=== PATIENT | female | born 1955 | race Caucasian/White ===

== ENCOUNTER 2016-10-25 10:25 | Outpatient (CLI) | payer OTHER | END 2016-10-25 10:26 | disposition home or self-care (01) | DX: K57.32 Diverticulitis of large intestine without perforation or abscess without bleeding (principal) ==

== ENCOUNTER 2017-10-31 08:00 | Outpatient (CLI) | payer OTHER ==
[2017-10-31 14:31] LABS: BASOPHILS # (AUTO) 0.1 10^3/uL (0.0-0.1); BASOPHILS % (AUTO) 0.6 %; EOSINOPHILS # (AUTO) 0.1 10^3/uL (0.0-0.7); EOSINOPHILS % (AUTO) 1.8 %; HGB - HEMOGLOBIN 14.5 g/dL (12.0-16.0); LYMPHOCYTES # (AUTO) 2.1 10^3/uL (1.5-3.5); LYMPHOCYTES % (AUTO) 26.9 %; MEAN CORPUSCULAR HEMOGLOBIN 31.2 pg (27.0-31.0); MEAN CORPUSCULAR HGB CONC 34.7 g/dL (32.0-36.0); MEAN CORPUSCULAR VOLUME 89.9 fL (81.0-99.0); MEAN PLATELET VOLUME 9.4 fL (7.9-10.8); MONOCYTES % (AUTO) 13.3 %; NEUTROPHILS # (AUTO) 4.5 10^3/uL (1.5-6.6); NEUTROPHILS % (AUTO) 57.4 %; RED BLOOD COUNT 4.65 10^6/uL (4.20-5.40); RED CELL DISTRIBUTION WIDTH 12.7 % (12.0-15.0); WHITE BLOOD COUNT 7.8 x10^3/uL (4.8-10.8)
[2017-10-31 14:43] LABS: ALBUMIN 4.5 g/dL (3.2-5.5); ALBUMIN/GLOBULIN RATIO 1.5 (1.0-2.2); ALKALINE PHOSPHATASE 76 IU/L (42-121); ALT ALANINE AMINOTRANSFERASE 19 IU/L (10-60); AST ASPARTATE AMINOTRANSFERASE 21 IU/L (10-42); BILIRUBIN,TOTAL 0.5 mg/dL (0.2-1.0); BUN - BLOOD UREA NITROGEN 27 mg/dL (6-20); CARBON DIOXIDE - CO2 28 mmol/L (21-32); CHLORIDE 101 mmol/L (101-111); CHOL/HDL RATIO 2.7 (<4.4); CHOLESTEROL 240 mg/dL; CREATININE 0.8 mg/dL (0.4-1.0); GFR - MDRD 73 (>89); GLUCOSE 91 mg/dL (70-100); HDL CHOLESTEROL 88 mg/dL; LDL CHOLESTEROL,CALCULATED 142 mg/dL; LDL/HDL RATIO 1.6 (<4.4); SODIUM 137 mmol/L (135-145); TOTAL PROTEIN 7.6 g/dL (6.7-8.2); VLDL CHOLESTEROL 10 mg/dL
[2017-10-31 14:46] LABS: PLATELET ESTIMATE, MANUAL NORMAL (130-450,000) (NORMAL); PLATELET MORPHOLOGY PLATELET CLUMPING (NORMAL); RBC MORPHOLOGY (MULTIPLE) NORMAL APPEARANCE (NORMAL)
[2017-11-01 10:21] LABS: HEPATITIS C ANTIBODY NON-REACTIVE (NON-REACTIVE)
== END 2017-10-31 08:01 | disposition home or self-care (01) ==
LOC: LAB.R 08:00
PROVIDERS: ATTEND Physician Assistant Medical
DX: Z00.00 Encounter for general adult medical examination without abnormal findings (principal); Z72.89 Other problems related to lifestyle
CPT/HCPCS: 80053; 80061; 83721; 84443; 85025; 86803

== ENCOUNTER 2017-11-11 08:30 | Outpatient (CLI) | payer OTHER ==
[2017-11-13 19:36] LABS: ANA SCREEN POSITIVE (NEGATIVE)
== END 2017-11-11 08:31 | disposition home or self-care (01) ==
LOC: LAB.R 08:30
PROVIDERS: ATTEND Physician Assistant
DX: L71.8 Other rosacea (principal)
CPT/HCPCS: 86038

== ENCOUNTER 2018-09-15 12:19 | Outpatient (CLI) | payer OTHER ==
--- NOTE | 2018-09-15 13:48 | MRI Report ---
Reason: CERVICAL DISC DISORDER WITH RADICULOPATHY Procedure Date: 09/15/2018 Accession Number: [id number] / [id number] Procedure: MRI - Cervical Spine W/O CPT Code: FULL RESULT: EXAM: MRI CERVICAL SPINE WITHOUT CONTRAST EXAM DATE: 09/15/2018 01:22 PM. CLINICAL HISTORY: Cervical disk disorder with radiculopathy.Reported history of neck pain with pain extending into both arms. COMPARISONS: Cervical spine 12/03/2010 9:55 AM. TECHNIQUE: Multiplanar, multisequence T1-weighted and fluid-sensitive sequences of the cervical spine without contrast. Other: None. FINDINGS: Neurologic Structures: The visualized posterior fossa structures are unremarkable. No signal abnormality in the visualized spinal cord. Alignment: No interval change of alignment. Bone Marrow: No acute marrow edema. Multilevel degenerative endplate signal changes are present, most prominent at C3-C4 and C6-C7. Interspace Levels/Facets: C1-C2: Stable appearance. Patent central canal. C2-C3: Stable appearing mild degenerative disk disease and facet arthropathy. Mild but potentially progressive foraminal stenosis on the left primarily from facet arthropathy. C3-C4: Moderate and progressive degenerative disk disease. Circumferential disk bulge. Mildly more prominent ventral thecal sac indentation by broad-based posterior disk protrusion, mild central stenosis is now present but without cord compression. Broad-based bulge extends laterally into both foramina. More prominent left and right uncinate process spurring and facet arthropathy. Bilateral foraminal stenosis, progressive, moderate on the right and moderate to severe on the left. C4-C5: Moderate progressive degenerative disk disease. Broad-based bulge. Marginal spurring. Additional prominent asymmetric and probably progressive left intraforaminal disk protrusion with osteophyte creating moderate to severe left foraminal stenosis. Minimal central stenosis. No cord impingement. Patent right foramen. C5-C6: Similar pattern of moderate degenerative disk disease with marginal spurring and circumferential disk bulge. Essentially stable midline posterior protrusion which may contact the ventral cord surface but does not appear progressive. Stable degree of mild central canal stenosis. The neural foramina show no significant or progressive stenosis. C6-C7: Similar findings of moderate degenerative disk disease. Circumferential disk bulge and marginal spurring are similar to prior. Minimal nonprogressive central stenosis. No cord impingement. Stable mild appearing bilateral foraminal stenosis. C7-T1: Mild but progressive degenerative disk space narrowing. Moderately prominent and progressive appearing facet arthropathy left greater than right. Patent central canal and right foramen. Minimal left foraminal stenosis is present. T1-T2: Left greater than right facet arthropathy associated with a mild degree of left foraminal stenosis on the left posteriorly which appears stable. Musculature: No acute edema. Other: No focal prevertebral soft tissue thickening. IMPRESSION: 1. Multilevel minimal to mild central stenosis without significant progression or developing cord impingement. 2. Prominent and progressive degenerative foraminal stenosis at multiple levels. This appears especially pronounced at C3-C4 left greater than right and on the left at C4-C5. RADIA
== END 2018-09-15 12:20 | disposition home or self-care (01) ==
LOC: DI 12:19
PROVIDERS: ATTEND Physician Assistant Medical
DX: M50.31 Other cervical disc degeneration, high cervical region (principal); M48.02 Spinal stenosis, cervical region; M50.21 Other cervical disc displacement, high cervical region; M47.9 Spondylosis, unspecified
CPT/HCPCS: 72141

== ENCOUNTER 2019-03-02 10:24 | Outpatient (CLI) | payer OTHER ==
[2019-03-02 11:04] LABS: BASOPHILS # (AUTO) 0.1 10^3/uL (0.0-0.1); BASOPHILS % (AUTO) 1.1 %; EOSINOPHILS # (AUTO) 0.1 10^3/uL (0.0-0.7); EOSINOPHILS % (AUTO) 1.8 %; HGB - HEMOGLOBIN 13.9 g/dL (12.0-16.0); LYMPHOCYTES # (AUTO) 1.8 10^3/uL (1.5-3.5); LYMPHOCYTES % (AUTO) 24.6 %; MEAN CORPUSCULAR HEMOGLOBIN 31.1 pg (27.0-31.0); MEAN CORPUSCULAR HGB CONC 34.2 g/dL (32.0-36.0); MEAN CORPUSCULAR VOLUME 90.8 fL (81.0-99.0); MEAN PLATELET VOLUME 9.9 fL (7.9-10.8); MONOCYTES # (AUTO) 0.9 10^3/uL (0.0-1.0); NEUTROPHILS # (AUTO) 4.3 10^3/uL (1.5-6.6); NEUTROPHILS % (AUTO) 59.9 %; PLT - PLATELET COUNT 259 10^3/uL (130-450); RED BLOOD COUNT 4.47 10^6/uL (4.20-5.40); RED CELL DISTRIBUTION WIDTH 12.2 % (12.0-15.0); WHITE BLOOD COUNT 7.2 x10^3/uL (4.8-10.8)
[2019-03-02 11:15] LABS: ALBUMIN 4.2 g/dL (3.2-5.5); ALBUMIN/GLOBULIN RATIO 1.3 (1.0-2.2); BILIRUBIN,TOTAL 0.6 mg/dL (0.2-1.0); CALCIUM 9.4 mg/dL (8.5-10.3); CREATININE 0.6 mg/dL (0.4-1.0); TOTAL PROTEIN 7.4 g/dL (6.7-8.2)
== END 2019-03-02 10:25 | disposition home or self-care (01) ==
LOC: LAB 10:24
PROVIDERS: ATTEND Nurse Practitioner
DX: R10.9 Unspecified abdominal pain (principal); K58.9 Irritable bowel syndrome, unspecified
CPT/HCPCS: 36415; 80053; 85025

== ENCOUNTER 2019-03-02 14:42 | Outpatient (CLI) | payer OTHER ==
[2019-03-02] MEDS ORDERED: IOVERSOL 320 50 ML VIAL ONE (14:53)
[2019-03-02] MEDS ORDERED: IOVERSOL 320 100 ML VIAL IVP ONE ×2 (14:53→15:56)
[2019-03-02] MEDS ORDERED: IOVERSOL 320 50 ML VIAL PO ONE (15:56)
--- NOTE | 2019-03-02 16:11 | CT Report ---
Reason: IBD,ABDOMINAL PAIN Procedure Date: 03/02/2019 Accession Number: [id number] / [id number] Procedure: CT - Abdomen/Pelvis W CPT Code: FULL RESULT: EXAM: CT ABDOMEN AND PELVIS EXAM DATE: 03/02/2019 03:55 PM. CLINICAL HISTORY: IBD, abdominal pain. COMPARISONS: ABDOMEN/PELVIS W/ 02/06/2015 2:12 PM. TECHNIQUE: Routine helical CT imaging was performed through the abdomen and pelvis. IV contrast: OPTI 320 100 mL. Enteric contrast: Yes. Reconstructions: Coronal and sagittal. In accordance with CT protocol optimization, one or more of the following dose reduction techniques were utilized for this exam: automated exposure control, adjustment of mA and/or KV based on patient size, or use of iterative reconstructive technique. FINDINGS: Lung Bases: Limited by motion artifact, unremarkable. Liver: Normal. No masses. Gallbladder/Bile Ducts: Not seen, prominent common bile duct, normal finding in the setting of prior cholecystectomy. Spleen: Normal. Pancreas: Normal. Adrenal Glands: Normal. Kidneys: Appearance of extrarenal right pelvis is similar to 2015 with no surrounding perinephric fat stranding to suggest underlying hydronephrosis. Left kidney is unremarkable. Peritoneal Cavity/Bowel: There is no bowel obstruction or abscess formation. A few prominent lymph nodes are seen in the pericecal region. There is prominence of the pericolonic fat as well as subtle stranding in the region of the splenic flexure of the colon were a few prominent lymph nodes are seen. There is sigmoid diverticulosis without evidence of diverticulitis. The appendix is not seen. Pelvic Organs: Normal. The bladder and visualized pelvic organs are within normal limits. Vasculature: No aneurysms or other significant abnormality. Bones: No significant abnormality. Other: None. IMPRESSION: Nonspecific inflammatory changes in the region of the colonic splenic flexure with a few additional lymph nodes in the region of the cecum, compatible with reported history of inflammatory bowel disease. No abscess or bowel obstruction to suggest acute complication. RADIA
== END 2019-03-02 14:43 | disposition home or self-care (01) ==
LOC: DI 14:42
PROVIDERS: ATTEND Nurse Practitioner
DX: R10.9 Unspecified abdominal pain (principal); K58.9 Irritable bowel syndrome, unspecified
CPT/HCPCS: 36415; 74177; 80053; 85025; Q9967

== ENCOUNTER 2019-07-09 08:00 | Outpatient (CLI) | payer OTHER | END 2019-07-09 23:59 | disposition home or self-care (01) | LOC: LAB.R 08:00 | PROVIDERS: ATTEND Internal Medicine | DX: R19.7 Diarrhea, unspecified (principal); R10.31 Right lower quadrant pain; R10.32 Left lower quadrant pain | CPT/HCPCS: 81599; 83993 ==

== ENCOUNTER 2019-08-21 04:52 | Emergency (ER) | payer OTHER ==
[2019-08-21 05:29] LABS: BASOPHILS # (AUTO) 0.1 10^3/uL (0.0-0.1); BASOPHILS % (AUTO) 0.8 %; EOSINOPHILS # (AUTO) 0.2 10^3/uL (0.0-0.7); EOSINOPHILS % (AUTO) 1.5 %; HGB - HEMOGLOBIN 14.2 g/dL (12.0-16.0); LYMPHOCYTES # (AUTO) 1.6 10^3/uL (1.5-3.5); LYMPHOCYTES % (AUTO) 15.2 %; MEAN CORPUSCULAR HEMOGLOBIN 31.1 pg (27.0-31.0); MEAN CORPUSCULAR HGB CONC 34.1 g/dL (32.0-36.0); MEAN CORPUSCULAR VOLUME 91.4 fL (81.0-99.0); MONOCYTES # (AUTO) 1.9 10^3/uL (0.0-1.0); MONOCYTES % (AUTO) 17.9 %; NEUTROPHILS # (AUTO) 6.8 10^3/uL (1.5-6.6); NEUTROPHILS % (AUTO) 64.3 %; PLT - PLATELET COUNT 244 10^3/uL (130-450); RED BLOOD COUNT 4.56 10^6/uL (4.20-5.40); RED CELL DISTRIBUTION WIDTH 12.5 % (12.0-15.0); WHITE BLOOD COUNT 10.5 x10^3/uL (4.8-10.8)
[2019-08-21] MEDS ORDERED: ALBUTEROL NEB 2.5 MG/3 ML INH STA (05:33)
[2019-08-21] MEDS ORDERED: CHERRY SYRUP 10 ML UDC PO ONE (05:33)
[2019-08-21] MEDS ORDERED: BENZONATATE 100 MG CAPSULE PO STA (05:33)
[2019-08-21] MEDS ORDERED: DEXAMETHASONE 10 MG/ML VIAL PO STA (05:33)
[2019-08-21 05:38] LABS: ALBUMIN 4.2 g/dL (3.2-5.5); ALBUMIN/GLOBULIN RATIO 1.3 (1.0-2.2); BILIRUBIN,TOTAL 0.5 mg/dL (0.2-1.0); CREATININE 0.6 mg/dL (0.4-1.0); TOTAL PROTEIN 7.5 g/dL (6.7-8.2)
--- NOTE | 2019-08-21 05:45 | XRAY Report ---
Reason: chest tightness/cough Procedure Date: 08/21/2019 Accession Number: [id number] / [id number] Procedure: XR - Chest 2 View X-Ray CPT Code: 80471 Final Report FULL RESULT: EXAM: CHEST RADIOGRAPHY EXAM DATE: 08/21/2019 05:29 AM. CLINICAL HISTORY: Chest tightness/cough. COMPARISON: XR RIBS UNILAT W/ PA CHEST MIN 3 VIEWS 06/18/2010 10:59 AM. TECHNIQUE: 2 views. FINDINGS: Lungs/Pleura: No alveolar consolidation or pleural effusion seen. No pneumothorax. Mediastinum: Heart size upper normal. Other: None. IMPRESSION: 1. Borderline heart size. No acute abnormality seen. RADIA
--- NOTE | 2019-08-21 06:51 | ED Physician Documentation ---
PD HPI URI - Stated complaint Stated Complaint: CP/CONGESTION - Chief complaint Chief Complaint: Cardiac - History obtained from History obtained from: Patient - History of Present Illness Timing - onset: How many weeks ago (1) Timing duration: Weeks (1) Timing details: Gradual onset, Still present Associated symptoms: Nasal congestion, Dry cough, Chest pain (with coughing), Dyspnea. No: Fever, NVD Contributing factors: No: Sick contact, Travel, Unimmunized, COPD / asthma Similar symptoms before: Has not had sx before Recently seen: Not recently seen Review of Systems Constitutional: denies: Fever Nose: reports: Rhinorrhea / runny nose, Congestion Cardiac: reports: Chest pain / pressure (only with coughing). denies: Palpitations, Pedal edema, Calf pain Respiratory: reports: Dyspnea, Cough. denies: Hemoptysis, Wheezing GI: denies: Nausea, Vomiting Skin: denies: Rash, Lesions Musculoskeletal: denies: Neck pain, Back pain, Extremity swelling Neurologic: reports: Generalized weakness. denies: Near syncope PD PAST MEDICAL HISTORY - Past Medical History Past Medical History: Yes Cardiovascular: Other Musculoskeletal: Osteoarthritis, Osteoporosis Other Past Medical History: SVT - Past Surgical History Past Surgical History: Yes /CLINICAL MEDICAL ASSISTANT: Hysterectomy HEENT: Tonsil/Adenoidectomy - Present Medications Home Medications: Ambulatory Orders Medication Instructions Recorded Confirmed Estradiol [Estrace] 0.5 mg PO DAILY 07/23/14 08/21/19 HYDROcod/ACETAM 5/325 [Mcgee 5/325] 1 - 2 ea PO Q6H PRN #15 tablet 07/23/14 08/21/19 diltiaZEM CD [Cardizem Cd] 240 mg PO DAILY 07/23/14 08/21/19 Albuterol Sulfate [Albuterol 2 puffs IH QID #1 hfa.aer.ad 08/21/19 Sulfate Hfa] Benzonatate [Tessalon Perle] 100 mg PO TID PRN #25 capsule 08/21/19 Doxycycline Monohydrate 100 mg PO BID #14 tablet 08/21/19 Hydrocodone/Acetaminophen [Mcgee 1 each PO Q6H PRN #15 tablet 08/21/19 5-325 Tablet] dexAMETHasone [Decadron] 4 mg PO DAILY #5 tablet 08/21/19 - Allergies Allergies/Adverse Reactions: Allergies Allergy/AdvReac Type Severity Reaction Status Date / Time Penicillins AdvReac Emesis Verified 08/21/19 06:11 - Social History Does the pt smoke?: No Smoking Status: Never smoker Does the pt drink ETOH?: Yes Does the pt have substance abuse?: No - Immunizations Immunizations are current?: Yes - POLST Patient has POLST: No PD ED PE NORMAL - Vitals Vital signs reviewed: Yes - General General: Alert and oriented X 3, No acute distress, Well developed/nourished - HEENT HEENT: Ears normal, Moist mucous membranes, Pharynx benign - Neck Neck: Supple, no meningeal sign, No adenopathy - Cardiac Cardiac: RRR, No murmur - Respiratory Respiratory: No respiratory distress, Clear bilaterally - Abdomen Abdomen: Soft, Non tender - Derm Derm: Normal color, Warm and dry - Extremities Extremities: Normal ROM s pain, No edema, No calf tenderness / cord - Neuro Neuro: Alert and oriented X 3, No motor deficit, Normal speech Results - Vitals Vitals: Vital Signs - 24 hr 08/21/19 08/21/19 08/21/19 06:07 06:09 07:20 Temperature 37.2 C Heart Rate 79 79 86 Respiratory 14 14 19 Rate Blood Pressure 176/86 H 187/90 H O2 Saturation 97 94 Oxygen O2 Source Room air - EKG (time done) 05:01 Rhythm: NSR Christmas: Normal Intervals: Normal PA QRS: Normal Ischemia: Normal ST segments. No: ST elevation c/w ischemia, ST depression - Labs Labs: Laboratory Tests 08/21/19 08/21/19 08/21/19 05:13 05:13 05:43 WBC 10.5 RBC 4.56 Hgb 14.2 Hct 41.7 MCV 91.4 MCH 31.1 H MCHC 34.1 RDW 12.5 Plt Count 244 MPV 10.0 Neut # (Auto) 6.8 H Lymph # (Auto) 1.6 [place] # (Auto) 1.9 H Eos # (Auto) 0.2 Baso # (Auto) 0.1 Absolute Nucleated RBC 0.00 Nucleated RBC % 0.0 Sodium 138 Potassium 3.3 L Chloride 104 Carbon Dioxide 26 Anion Gap 8.0 BUN 20 Creatinine 0.6 Estimated GFR (MDRD) 101 Glucose 101 H Calcium 9.0 Total Bilirubin 0.5 AST 71 H ALT 101 H Alkaline Phosphatase 116 Total Protein 7.5 Albumin 4.2 Globulin 3.3 Albumin/Globulin Ratio 1.3 Lipase 36 Influenza A (Rapid) Negative Influenza B (Rapid) Negative - Rads (name of study) chest xray Radiology: Prelim report reviewed (no infiltrates), See rad report PD MEDICAL DECISION MAKING - ED course Complexity details: considered differential, d/w patient Departure - Departure Disposition: 01 Home, Self Care Clinical Impression: Upper respiratory infection Qualifiers: URI type: unspecified URI Qualified Code(s): J06.9 - Acute upper respiratory infection, unspecified Condition: Stable Record reviewed to determine appropriate education?: Yes Instructions: ED Upper Resp Infec Abx Tx Follow-Up: Consuelo Singh ARNP, [facility] [Primary Care Provider] - Prescriptions: Albuterol Sulfate [Albuterol Sulfate Hfa] 2 puffs IH QID #1 hfa.aer.ad Benzonatate [Tessalon Perle] 100 mg PO TID PRN #25 capsule PRN Reason: Cough dexAMETHasone [Decadron] 4 mg PO DAILY #5 tablet Doxycycline Monohydrate 100 mg PO BID #14 tablet Hydrocodone/Acetaminophen [Mcgee 5-325 Tablet] 1 each PO Q6H PRN #15 tablet PRN Reason: Pain Comments: Stay well-hydrated. Use the albuterol inhaler 2 puffs 4 times a day for the next week or so. Use it extra times if needed for wheeziness and cough. Decadron steroid to decrease airway inflammation will help quite a bit as well. Take it as directed daily. Doxycycline antibiotic for possible bacterial infection. This will help if it is bacterial but not if it is all viral. Hard to tell at this time. Benzonatate as needed for cough suppression. Add hydrocodone if needed for pains and cough. You can still continue yhco-yso-wcloedf cough medicine and certainly use Tylenol or ibuprofen for any fevers and mild pains. Discharge Date/Time: 08/21/19 07:28
[2019-08-21 07:22] VITALS: BP 187/90
== END 2019-08-21 07:28 | disposition home or self-care (01) ==
LOC: ED 04:52
DX: J06.9 Acute upper respiratory infection, unspecified (principal); R94.31 Abnormal electrocardiogram [ECG] [EKG]
CPT/HCPCS: 36415; 71046; 80053; 83690; 85025; 87275; 87276; 93005; 94640; 99284; A9270

== ENCOUNTER 2019-08-23 08:14 | Outpatient (CLI) | payer OTHER ==
--- NOTE | 2019-08-23 09:35 | MRI Report ---
Reason: CERVICAL DISC DEGENERATION CERVICCOTHORACIC,LUE PX Procedure Date: 08/23/2019 Accession Number: [id number] / [id number] Procedure: MRI - Cervical Spine W/O CPT Code: Final Report FULL RESULT: EXAM: MRI CERVICAL SPINE WITHOUT CONTRAST EXAM DATE: 08/23/2019 09:06 AM. CLINICAL HISTORY: CERVICAL DISC DEGENERATION CERVICCOTHORACIC, progression in bilateral arm and hand numbness (worse on left). COMPARISONS: CERVICAL SPINE W/O 09/15/2018 12:54 PM. TECHNIQUE: Multiplanar, multisequence T1-weighted and fluid-sensitive sequences of the cervical spine without contrast. Other: None. FINDINGS: Neurologic Structures: The visualized posterior fossa structures are unremarkable. No signal abnormality in the visualized spinal cord. Alignment: No scoliosis or spondylolisthesis. Bone Marrow: No gross fractures or bone lesions. No marrow edema. Interspace Levels/Facets: C1-C2: Unremarkable. C2-C3: There is disk height loss and endplate degenerative changes. No significant central canal or neural foraminal narrowing. C4-C5: There is disk height loss and a disk osteophyte complex with mild central canal narrowing. There is moderate bilateral neural foraminal narrowing. C5-C6: There is a disk osteophyte complex with mild central canal narrowing. There is moderate left neural foraminal narrowing. C4-C5: There is a disk osteophyte complex with mild central canal narrowing. No neural foraminal narrowing. C5-C6: There is a disk osteophyte complex with mild central canal narrowing. No neural foraminal narrowing. C6-C7: Unremarkable. C7-T1: Unremarkable. Musculature: Normal. No edema or fatty atrophy. Other: The paravertebral and prevertebral soft tissues are normal. IMPRESSION: 1. C3-C4, C4-C5, C5-C6, and C6-C7 disk osteophyte complexes with mild central canal narrowing. (Unchanged) 2. Moderate bilateral C3-C4 and moderate left C4-C5 neural foraminal narrowing. (Unchanged) RADIA
--- NOTE | 2019-08-23 10:27 | MRI Report ---
Reason: RADICULOPATHY LUMBAR REGION, LLE PAIN Procedure Date: 08/23/2019 Accession Number: [id number] / [id number] Procedure: MRI - Lumbar Spine W/O CPT Code: Final Report FULL RESULT: EXAM: MRI LUMBAR SPINE WITHOUT CONTRAST EXAM DATE: 08/23/2019 09:29 AM. CLINICAL HISTORY: RADICULOPATHY LUMBAR REGION, LLE PAIN. COMPARISON: None. TECHNIQUE: Multiplanar, multisequence T1-weighted and fluid-sensitive sequences of the lumbar spine from T12 to S1 without contrast. Other: None. FINDINGS: Spinal Canal: The conus terminates at T12/L1. The conus medullaris and cauda equina are unremarkable. Alignment: No scoliosis or spondylolisthesis. Bone Marrow: Five [id number] lumbar vertebral bodies are assumed. No gross fractures or bone lesions. No bone marrow replacement. Disk Levels/Facets: T12-L1: Unremarkable. L1-L2: There are endplate degenerative changes. There is a mild disk bulge. No significant central canal or neural foraminal narrowing. L2-L3: There is disk height loss and a mild disk bulge. There is no significant central canal or neural foraminal narrowing. L3-L4: There is disk height loss and endplate degenerative changes. There is a mild disk bulge. There is no significant central canal narrowing. There is mild right neural foraminal narrowing. L4-L5: There is 4 mm retrolisthesis of L4 on L5. There is mild bilateral facet hypertrophy. No significant central canal narrowing. Mild bilateral neural foraminal narrowing. L5-S1: Disk unremarkable. Moderate bilateral facet hypertrophy. No central canal narrowing. Mild bilateral neural foraminal narrowing. Comment: The following findings are so common in adults without low back pain that while we report their presence, they must be interpreted with caution and in the context of the clinical situation. (Reference Jarvik et al, Spine 2001) Prevalence of findings in patients without low back pain: Disk degeneration (any evidence): 92% Disk desiccation/T2 signal loss: 83% Disk height loss: 56% Disk bulge: 64% Disk protrusion: 32% Annular tear/high intensity zone: 38% Musculature: There is mild atrophy of the multifidus musculature. Other: The partially visualized retroperitoneum is unremarkable. IMPRESSION: 1. No focal disk protrusion. No significant central canal narrowing. 2. Mild bilateral L4-L5 and mild bilateral L5-S1 neural foraminal narrowing. RADIA
== END 2019-08-23 08:15 | disposition home or self-care (01) ==
LOC: DI 08:14
PROVIDERS: ATTEND Orthopaedic Surgery
DX: M50.31 Other cervical disc degeneration, high cervical region (principal); M48.02 Spinal stenosis, cervical region; M47.812 Spondylosis without myelopathy or radiculopathy, cervical region; M51.36 Other intervertebral disc degeneration, lumbar region; M48.061 Spinal stenosis, lumbar region without neurogenic claudication; M47.816 Spondylosis without myelopathy or radiculopathy, lumbar region
CPT/HCPCS: 72141; 72148

== ENCOUNTER 2020-07-07 10:07 | Outpatient (CLI) | payer OTHER ==
[2020-07-07 10:33] LABS: BASOPHILS # (AUTO) 0.1 10^3/uL (0.0-0.1); BASOPHILS % (AUTO) 0.8 %; EOSINOPHILS # (AUTO) 0.1 10^3/uL (0.0-0.7); EOSINOPHILS % (AUTO) 1.7 %; HGB - HEMOGLOBIN 14.5 g/dL (12.0-16.0); LYMPHOCYTES # (AUTO) 1.8 10^3/uL (1.5-3.5); LYMPHOCYTES % (AUTO) 25.9 %; MEAN CORPUSCULAR HEMOGLOBIN 31.9 pg (27.0-31.0); MEAN CORPUSCULAR HGB CONC 34.5 g/dL (32.0-36.0); MEAN CORPUSCULAR VOLUME 92.5 fL (81.0-99.0); MEAN PLATELET VOLUME 10.3 fL (7.9-10.8); MONOCYTES % (AUTO) 13.7 %; NEUTROPHILS # (AUTO) 4.1 10^3/uL (1.5-6.6); NEUTROPHILS % (AUTO) 57.6 %; PLT - PLATELET COUNT 279 10^3/uL (130-450); RED BLOOD COUNT 4.54 10^6/uL (4.20-5.40); WHITE BLOOD COUNT 7.1 x10^3/uL (4.8-10.8)
== END 2020-07-07 10:08 | disposition home or self-care (01) ==
LOC: LAB 10:07
PROVIDERS: ATTEND Orthopaedic Surgery
DX: Z01.812 Encounter for preprocedural laboratory examination (principal); Z01.810 Encounter for preprocedural cardiovascular examination
CPT/HCPCS: 36415; 80051; 85025; 93005

== ENCOUNTER 2020-10-30 21:43 | Outpatient (CLI) | payer OTHER | END 2020-10-30 21:44 | disposition home or self-care (01) | LOC: COV 21:43 | PROVIDERS: ATTEND Family Medicine | DX: Z20.822 Contact with and (suspected) exposure to COVID-19 (principal) ==

== ENCOUNTER 2021-03-08 13:06 | Outpatient (CLI) | payer MEDICARE, OTHER ==
--- NOTE | 2021-03-09 12:36 | Ultrasound Report ---
PROCEDURE: Head or Neck Soft Tissue INDICATIONS: MULTIPLE THYROID NODULES TECHNIQUE: Real time scanning was performed of the neck region of interest, with image documentation . COMPARISON: None. FINDINGS: The right lobe measures 5.1 x 1.6 x 2.2 cm. The left lobe measures 4.2 x 1.1 x 1.8 cm. Isthmus measur es 0.2 cm. Lesion 1. Right mid/lower pole. 24 x 10 x 16 mm. Wider than tall, predominately solid, hypoechoic, sm ooth, with punctate and macrocalcifications. Slightly larger compared to prior. Lesion 2. Right inferior medial. 6 x 3 x 6 mm. Wider than tall, predominately solid, hypoechoic, smoo th, punctate echogenic foci. No change compared to prior. Lesion 3. Left superior/posterior/lateral. 10 x 4 x 9 mm. Wider than tall, predominantly solid, hypoe choic, smooth, punctate calcifications. Slightly larger compared to prior. Lesion 4. Left inferior/posterior/lateral. 9 x 6.9 mm. Wider than tall, 6 probably solid, hypoechoic, halo margins, punctate calcifications. Slightly larger compared to prior. Lesion 5. Left isthmus. 4 x 2 x 4 mm. Wider than tall, solid, hypoechoic, smooth, no microcalcificati ons. Slightly larger compared to prior. Lesions 6. Left inferior. 5 x 2 x 6 mm. Wider than tall, solid, hypoechoic, smooth, no microcalcifica tions. IMPRESSION: 1. Dominant nodule in the right lobe is slightly larger and TI-RADS 5. Recommend FNA. 2. The remaining nodules are stable or slightly larger and are subcentimeter. Recommend continued margret se observation. Reviewed by: Gerard Mayberry on 03/09/2021 12:35 PM PDT Approved by: Gerard Mayberry on 03/09/2021 12:35 PM PDT Station ID: [id number]
== END 2021-03-08 13:07 | disposition home or self-care (01) ==
LOC: DI 13:06
PROVIDERS: ATTEND Registered Nurse
DX: E04.2 Nontoxic multinodular goiter (principal)

== ENCOUNTER 2021-04-04 10:16 | Outpatient (CLI) | payer MEDICARE, OTHER ==
--- NOTE | 2021-04-05 15:48 | Mammography Report ---
BILATERAL DIGITAL SCREENING MAMMOGRAM 3D/2D: 04/04/2021 CLINICAL: Routine screening. Comparison is made to exams dated: 05/10/2015 mammogram, 07/01/2013 mammogram, 08/27/2011 ultrasound, 08/27/2011 mammogram, and 08/20/2011 mammogram - [facility]. The tissue of both breast s is predominantly fatty. No significant masses, calcifications, or other findings are seen in either breast. There has been no significant interval change. IMPRESSION: NEGATIVE There is no mammographic evidence of malignancy. A 1 year screening mammogram is recommended. This exam was interpreted at Station ID: [id number]. NOTE: For mammograms, a report in lay terms will be sent to the patient. Approximately 15% of breast malignancies will not be visualized mammographically. In the management of a palpable breast mass, a negative mammogram must not discourage biopsy of a clinically suspicious lesion. Electronically Signed By: Zi Medrano M.D., jr/rabia:04/04/2021 13:24:43 ACR BI-RADS Category 1: Negative 3341F PARENCHYMAL PATTERN: (F) - The breast(s) demonstrate(s) diffuse fatty replacement. BI-RADS CATEGORY: (1) - 1 RECOMMENDATION: (ANNUAL) - Recommend routine annual screening mammography. [id number] 1 year screening LATERALITY: (B)
== END 2021-04-04 10:17 | disposition home or self-care (01) ==
LOC: DI 10:16
PROVIDERS: ATTEND Registered Nurse
DX: Z12.31 Encounter for screening mammogram for malignant neoplasm of breast (principal)

== ENCOUNTER 2021-04-24 10:14 | Outpatient (CLI) | payer MEDICARE ==
[2021-04-24 10:34] LABS: BASOPHILS # (AUTO) 0.1 10^3/uL (0.0-0.1); BASOPHILS % (AUTO) 0.9 %; EOSINOPHILS # (AUTO) 0.1 10^3/uL (0.0-0.7); EOSINOPHILS % (AUTO) 1.4 %; HCT - HEMATOCRIT 44.2 % (37.0-47.0); HGB - HEMOGLOBIN 15.1 g/dL (12.0-16.0); LYMPHOCYTES # (AUTO) 1.9 10^3/uL (1.5-3.5); LYMPHOCYTES % (AUTO) 24.5 %; MEAN CORPUSCULAR HEMOGLOBIN 31.9 pg (27.0-31.0); MEAN CORPUSCULAR HGB CONC 34.2 g/dL (32.0-36.0); MEAN CORPUSCULAR VOLUME 93.2 fL (81.0-99.0); MEAN PLATELET VOLUME 9.9 fL (7.9-10.8); MONOCYTES # (AUTO) 0.9 10^3/uL (0.0-1.0); MONOCYTES % (AUTO) 11.3 %; NEUTROPHILS # (AUTO) 4.9 10^3/uL (1.5-6.6); NEUTROPHILS % (AUTO) 61.6 %; PLT - PLATELET COUNT 277 10^3/uL (130-450); RED BLOOD COUNT 4.74 10^6/uL (4.20-5.40); RED CELL DISTRIBUTION WIDTH 12.1 % (12.0-15.0); WHITE BLOOD COUNT 7.9 x10^3/uL (4.8-10.8)
[2021-04-24 10:53] LABS: ALBUMIN 4.5 g/dL (3.2-5.5); ALBUMIN/GLOBULIN RATIO 1.4 (1.0-2.2); ALKALINE PHOSPHATASE 80 IU/L (42-121); ALT ALANINE AMINOTRANSFERASE 20 IU/L (10-60); AST ASPARTATE AMINOTRANSFERASE 19 IU/L (10-42); BILIRUBIN,TOTAL 0.9 mg/dL (0.2-1.0); BUN - BLOOD UREA NITROGEN 27 mg/dL (6-20); CALCIUM 9.6 mg/dL (8.5-10.3); CARBON DIOXIDE - CO2 28 mmol/L (21-32); CHLORIDE 101 mmol/L (101-111); CHOL/HDL RATIO 2.5 (<4.4); CHOLESTEROL 283 mg/dL; CREATININE 0.7 mg/dL (0.4-1.0); GFR - MDRD 84 (>89); GLUCOSE 103 mg/dL (70-100); HDL CHOLESTEROL 111 mg/dL; LDL CHOLESTEROL,CALCULATED 164 mg/dL; LDL/HDL RATIO 1.5 (<4.4); POTASSIUM 4.3 mmol/L (3.5-5.0); SODIUM 138 mmol/L (135-145); TOTAL PROTEIN 7.7 g/dL (6.7-8.2); TRIGLYCERIDES 42 mg/dL; VLDL CHOLESTEROL 8 mg/dL
== END 2021-04-24 10:15 | disposition home or self-care (01) ==
LOC: LAB 10:14
PROVIDERS: ATTEND Registered Nurse
DX: E04.2 Nontoxic multinodular goiter (principal); K90.0 Celiac disease; Z79.899 Other long term (current) drug therapy; K58.9 Irritable bowel syndrome, unspecified; I47.1 Supraventricular tachycardia
CPT/HCPCS: 36415; 80053; 80061; 83721; 84443; 85025

== ENCOUNTER 2022-06-05 08:00 | Outpatient (CLI) | payer MEDICARE ==
[2022-06-05 16:22] LABS: BASOPHILS # (AUTO) 0.1 10^3/uL (0.0-0.1); BASOPHILS % (AUTO) 0.8 %; EOSINOPHILS # (AUTO) 0.2 10^3/uL (0.0-0.7); EOSINOPHILS % (AUTO) 2.8 %; HCT - HEMATOCRIT 41.4 % (37.0-47.0); HGB - HEMOGLOBIN 14.3 g/dL (12.0-16.0); LYMPHOCYTES # (AUTO) 1.7 10^3/uL (1.5-3.5); MEAN CORPUSCULAR HEMOGLOBIN 31.6 pg (27.0-31.0); MEAN CORPUSCULAR HGB CONC 34.5 g/dL (32.0-36.0); MEAN CORPUSCULAR VOLUME 91.6 fL (81.0-99.0); MONOCYTES # (AUTO) 0.8 10^3/uL (0.0-1.0); MONOCYTES % (AUTO) 12.6 %; NEUTROPHILS # (AUTO) 3.3 10^3/uL (1.5-6.6); NEUTROPHILS % (AUTO) 55.5 %; PLT - PLATELET COUNT 258 10^3/uL (130-450); RED BLOOD COUNT 4.52 10^6/uL (4.20-5.40); RED CELL DISTRIBUTION WIDTH 12.1 % (12.0-15.0)
[2022-06-05 16:57] LABS: ALBUMIN 4.1 g/dL (3.2-5.5); ALBUMIN/GLOBULIN RATIO 1.2 (1.0-2.2); ALKALINE PHOSPHATASE 77 IU/L (42-121); ALT ALANINE AMINOTRANSFERASE 19 IU/L (10-60); AST ASPARTATE AMINOTRANSFERASE 21 IU/L (10-42); BILIRUBIN,TOTAL 0.7 mg/dL (0.2-1.0); BUN - BLOOD UREA NITROGEN 20 mg/dL (6-20); CALCIUM 9.3 mg/dL (8.5-10.3); CARBON DIOXIDE - CO2 28 mmol/L (21-32); CHLORIDE 101 mmol/L (101-111); CHOL/HDL RATIO 3.2 (<4.4); CHOLESTEROL 252 mg/dL; CREATININE 0.8 mg/dL (0.4-1.0); GFR - MDRD 72 (>89); GLUCOSE 91 mg/dL (70-100); HDL CHOLESTEROL 80 mg/dL; LDL CHOLESTEROL,CALCULATED 155 mg/dL; LDL/HDL RATIO 1.9 (<4.4); POTASSIUM 3.7 mmol/L (3.5-5.0); SODIUM 138 mmol/L (135-145); TOTAL PROTEIN 7.4 g/dL (6.7-8.2); TRIGLYCERIDES 84 mg/dL; VLDL CHOLESTEROL 17 mg/dL
[2022-06-06 06:10] LABS: HCV AB <0.1 s/co ratio (0.0-0.9)
== END 2022-06-05 23:59 | disposition home or self-care (01) ==
LOC: LAB.R 08:00
PROVIDERS: ATTEND Internal Medicine
DX: K90.0 Celiac disease (principal); R03.0 Elevated blood-pressure reading, without diagnosis of hypertension; Z84.1 Family history of disorders of kidney and ureter; Z79.899 Other long term (current) drug therapy; Z11.59 Encounter for screening for other viral diseases; I47.1 Supraventricular tachycardia
CPT/HCPCS: 80053; 80061; 83721; 84443; 85025; 86803

== ENCOUNTER 2022-06-20 13:04 | Outpatient (CLI) | payer MEDICARE ==
--- NOTE | 2022-06-21 10:18 | Mammography Report ---
BILATERAL DIGITAL SCREENING MAMMOGRAM 3D/2D: 06/20/2022 CLINICAL: Routine screening. Comparison is made to exams dated: 04/04/2021 mammogram, 05/10/2015 mammogram, 07/01/2013 mammogram, an d 08/27/2011 mammogram - [facility]. There are scattered areas of fibroglandular density in both breasts (category b / 25%-50% glandular t issue). No significant masses, calcifications, or other findings are seen in either breast. There has been no significant interval change. IMPRESSION: NEGATIVE There is no mammographic evidence of malignancy. A 1 year screening mammogram is recommended. Based on the Tyrer Cuzick model (a risk assessment model) the patients lifetime risk is 5.3% and her 10 year risk is 3.0%. According to the ACR, ACS, and NCCN guidelines, an annual breast MRI exam lisbeth g with mammogram is recommended if the patients lifetime risk is 20% or greater. This exam was interpreted at Station ID: [id number]. NOTE: For mammograms, a report in lay terms will be sent to the patient. Approximately 15% of breast malignancies will not be visualized mammographically. In the management of a palpable breast mass, a negative mammogram must not discourage biopsy of a clinically suspicious lesion. Electronically Signed By: Hussain olson/rabia:06/20/2022 22:17:00 ACR BI-RADS Category 1: Negative 3341F PARENCHYMAL PATTERN: (A) - The breast(s) demonstrate(s) scattered fibroglandular densities. BI-RADS CATEGORY: (1) - 1 RECOMMENDATION: (ANNUAL) - Recommend routine annual screening mammography. [id number] 1 year screening LATERALITY: (B)
== END 2022-06-20 13:05 | disposition home or self-care (01) ==
LOC: DI 13:04
PROVIDERS: ATTEND Internal Medicine
DX: Z12.31 Encounter for screening mammogram for malignant neoplasm of breast (principal)

== ENCOUNTER 2022-07-12 11:07 | Outpatient (CLI) | payer MEDICARE ==
[2022-07-12 11:23] LABS: BASOPHILS # (AUTO) 0.1 10^3/uL (0.0-0.1); BASOPHILS % (AUTO) 0.8 %; EOSINOPHILS # (AUTO) 0.1 10^3/uL (0.0-0.7); EOSINOPHILS % (AUTO) 1.5 %; HCT - HEMATOCRIT 43.7 % (37.0-47.0); HGB - HEMOGLOBIN 14.6 g/dL (12.0-16.0); LYMPHOCYTES # (AUTO) 1.8 10^3/uL (1.5-3.5); LYMPHOCYTES % (AUTO) 23.8 %; MEAN CORPUSCULAR HEMOGLOBIN 30.7 pg (27.0-31.0); MEAN CORPUSCULAR HGB CONC 33.4 g/dL (32.0-36.0); MEAN CORPUSCULAR VOLUME 91.8 fL (81.0-99.0); MEAN PLATELET VOLUME 9.8 fL (7.9-10.8); MONOCYTES # (AUTO) 0.9 10^3/uL (0.0-1.0); MONOCYTES % (AUTO) 12.1 %; NEUTROPHILS # (AUTO) 4.6 10^3/uL (1.5-6.6); NEUTROPHILS % (AUTO) 61.5 %; PLT - PLATELET COUNT 280 10^3/uL (130-450); RED BLOOD COUNT 4.76 10^6/uL (4.20-5.40); RED CELL DISTRIBUTION WIDTH 12.1 % (12.0-15.0); WHITE BLOOD COUNT 7.5 x10^3/uL (4.8-10.8)
[2022-07-12 11:32] LABS: CALCIUM 9.3 mg/dL (8.5-10.3); CREATININE 0.6 mg/dL (0.4-1.0); POTASSIUM 3.9 mmol/L (3.5-5.0)
== END 2022-07-12 11:08 | disposition home or self-care (01) ==
LOC: LAB 11:07
PROVIDERS: ATTEND Internal Medicine Cardiovascular Disease
DX: I47.1 Supraventricular tachycardia (principal); R03.0 Elevated blood-pressure reading, without diagnosis of hypertension; Z84.1 Family history of disorders of kidney and ureter
CPT/HCPCS: 36415; 80048; 84443; 85025

== ENCOUNTER 2023-09-01 14:12 | Outpatient (CLI) | payer MEDICARE ==
--- NOTE | 2023-09-02 10:41 | Mammography Report ---
BILATERAL DIGITAL SCREENING MAMMOGRAM 3D/2D: 09/01/2023 CLINICAL: Routine screening. Comparison is made to exams dated: 06/20/2022 mammogram, 04/04/2021 mammogram, and 05/10/2015 mammogra m - [facility]. There are scattered areas of fibroglandular density in both breasts (category b / 25%-50% glandular t issue). No significant masses, calcifications, or other findings are seen in either breast. There has been no significant interval change. IMPRESSION: NEGATIVE There is no mammographic evidence of malignancy. A 1 year screening mammogram is recommended. Based on the Tyrer Cuzick model (a risk assessment model) the patients lifetime risk is 5.1% and her 10 year risk is 2.9%. According to the ACR, ACS, and NCCN guidelines, an annual breast MRI exam lisbeth g with mammogram is recommended if the patients lifetime risk is 20% or greater. This exam was interpreted at Station ID: [id number]. NOTE: For mammograms, a report in lay terms will be sent to the patient. Approximately 15% of breast malignancies will not be visualized mammographically. In the management of a palpable breast mass, a negative mammogram must not discourage biopsy of a clinically suspicious lesion. Electronically Signed By: Danelle lopez/rabia:09/01/2023 17:07:29 letter sent: No_Letter ACR BI-RADS Category 1: Negative 3341F PARENCHYMAL PATTERN: (A) - The breast(s) demonstrate(s) scattered fibroglandular densities. BI-RADS CATEGORY: (1) - 1 Mammogram [id number] 1 year screening LATERALITY: (B)
== END 2023-09-01 14:13 | disposition home or self-care (01) ==
LOC: DI 14:12
PROVIDERS: ATTEND Internal Medicine
DX: Z12.31 Encounter for screening mammogram for malignant neoplasm of breast (principal); R92.323 Mammographic fibroglandular density, bilateral breasts